=== PATIENT | male | born 2005 | race Caucasian/White ===

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

== ENCOUNTER 2024-08-10 04:30 | Emergency (ER) | payer OTHER, SELFPAY ==
--- OUTSIDE RECORDS SUMMARY | 2024-08-10 04:32 | XMS_ITS ---
Author Organization [facility] Address [address] [place] [address] Care Team Providers Care Clinical Fellow Name Role Phone Tommie Cronin Primary Care Provider REASON FOR VISIT Est Care not feeling well Encounters Encounter Location Date Provider Diagnosis [address] [place] [address] 04/10/2023 Tommie Cronin Plan Of Treatment No Information Progress Notes * Marleny PRYORDOB: [birth year] (19 yo M)Acc No.[id number]:04/10/2023 UNLOCKED PROGRESS NOTE Progress Notes Patient: Marleny ARAMBULA Provider: Mekhi Cronin :2005 A ge:18 Y S ex:Male Date:04/10/2023 Address:[address] [facility] [facility] Subjective: * Chief Complaints: * 1 . Est Care not feeling well. * Medical History: Objective: * Vitals: Assessment: Plan: * Treatment: * * Electronic signature of Taylor Cronin , [id number] on 08/10/2024 at 04:32 AM MANAGER CONTINUOUS IMPROVEMENT Sign off status: Pending * Provider: Mekhi Cronin Date: 1 Generated for Donell peoples/Aliya/Mariah on: 0 08/10/2024 04:32 AM MANAGER CONTINUOUS IMPROVEMENT
--- OUTSIDE RECORDS SUMMARY | 2024-08-10 04:33 | XMS_ITS | Clinical Summary ---
Author Organization [facility] Address [address] [place] [address] Care Team Providers Care Hotel Controller Name Role Phone Hector Hernandez MD Primary Care Provider [phone] Hector Hernandez MD Unavailable [phone] Source Comments [facility],non-owned Affiliates and Associated Physician Practices is amultiple site organization consisting of ambulatory clinics and hospital sitesin [place], [place], [place] and [place]. This disclosure is being madepursuant to the Care Everywhere program and may not contain all information available regarding this patient. Last updated 18.[facility] [employer] Allergies No known active allergies Medications * Be aware that medications may not be up to date on this document. Alwaysverify current medications with the patient. Medication Sig Dispensed Refills Start Date End Date Status citalopram (CELEXA) 10 MG tablet Take 10 mg by mouth once daily. 2 09/14/2014 Active polyethylene glycol 3350 (MIRALAX) packet Take by mouth once daily. 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 Questions solicited and answered. 2. Continue with existing conservative treatment program of arch supports 3. MRI of left foot/ankle for evaluation of possible tarsal coalition/bony fusion 4. Medications Prescribed: none 5. Activity Restrictions: none 6. Weightbearing status: No Restrictions Follow up: Schedule follow up when MRI is completed Flat foot (pes planus) (acquired), right foot Assessment & Plan (12/31/2019 2:14 PM CDT): PLAN: 1. Questions solicited and answered. 2. Continue with existing conservative treatment program of arch supports 3. Medications Prescribed: none 4. Activity Restrictions: none 5. Weightbearing status: No Restrictions Social History Tobacco Use Types Packs/Day Years Used Date Smoking Tobacco: Never Smokeless Tobacco: Never Sex and Gender Information Value Date Recorded Sex Assigned at Not on file Gender Identity Not on file Sexual Orientation Not on file Last Filed Vital Signs Vital Sign Reading Time Taken Comments Blood Pressure - - Pulse - - Temperature - - Respiratory Rate - - Oxygen Saturation - - Inhaled Oxygen Concentration - - Weight 69.9 kg (154 lb 1.6 oz) 02/04/2020 11:02 AM CDT Height 166.4 cm (5' 5.5 ) 02/04/2020 11:02 AM CD T Body Mass Index 25.25 02/04/2020 11:02 AM CDT Plan of Treatment Health Maintenance Due Date Last Done Comments HIV SCREENING 2019 HPV VACCINE (1 - Male 3-dose series) 2019 MENINGOCOCCAL (Group B) VACC INE (1 of 2 - Standard) 2020 HEPATITIS C SCREENING 03/15/2022 DTAP/TDAP/TD VACCINES (1 - Tdap) 2023 HEPATITIS B VACCINE (1 of 3 - 19+ 3-dose series) 2023 COVID-19 VACCINE (1 - 2023-2 5 season) 2024 INFLUENZA VACCINE (#1) 2024 DEPRESSION SCREENING 06/26/2024 ZOSTER VACCINE (1 of 2) 2054 HIB VACCINE Aged Out No longer eligi ble based on patient's age to complete this topic MENINGOCOCCAL VACCINE Aged Out No zohra benitez eligible based on patient's age to complete this topic PNEUMOCOCCAL VACCINE Aged Out No long er eligible based on patient's age to complete this topic Care Teams Hotel Controller Relationship Specialty Start Date End Date Hector Hernandez MD [address] [place] [address] PCP - General 01/02/20 Hector Hernandez MD [address] [place] [address] Pediatrics 01/02/20
--- OUTSIDE RECORDS SUMMARY | 2024-08-10 04:33 | XMS_ITS | Patient Health Record ---
Author Organization [facility] Address [address] [place] [address] Care Team Providers Care Boat Builder And Repairer Name Role Phone Tommie Cronin Primary Care Provider [phone] Reason For Referral No Information Plan Of Treatment No Information
--- OUTSIDE RECORDS SUMMARY | 2024-08-10 04:33 | XMS_ITS | Clinical Summary ---
Author Organization [facility] Address [address] [place] [address] Care Team Providers Care Manager Fraud Name Role Phone Unavailable Primary Care Provider Unavailabl e Social History Tobacco Use Types Packs/Day Years Used Date Smoking Tobacco: Never Assessed Sex and Gender Information Value Date Recorded Sex Assigned at Not on file Legal Sex Male 4:12 PM CDT Gender Identity Not on file Sexual Orientation Not on file Plan of Treatment Health Maintenance Due Date Last Done Comments Annual Physical 2007 HPV Vaccines (1 - Male 3-dos e series) 2019 Meningococcal B Vaccine (1 o f 2 - Standard) 2020 Hepatitis C 2022 DTaP, Tdap and Td Vaccines ( 1 - Tdap) 2023 Hepatitis B Vaccines (1 of 3 - 19+ 3-dose series) 2023 COVID-19 Vaccine (1 - 2023-2 5 season) 2024 Influenza Adult (#1) 2024 Meningococcal Vaccine Aged Out No zohra benitez eligible based on patient's age to complete this topic Pneumococcal Vaccine: Pediat rics (0 to 5 Years) and At-Risk Patients (6 to 64 Years) Aged Out No longer eligible b ased on patient's age to complete this topic RSV Immunizations Under 20 Months Aged Out No longer eligible based on patient's age to complete this topic
--- OUTSIDE RECORDS SUMMARY | 2024-08-10 04:33 | XMS_ITS | Continuity of Care Document ---
Author Organization [facility] Address [address] [place] [address] Phone Care Team Providers Care C Wpf Developer Name Role Phone Ayala OD, Grupo Unavailable Unavailable Procedures Procedure Date Eye Exam & Treatment Refraction Advance Directives Directive Yes / No Effective Date File Name No Information Encounters Encounter Description Practice Location Reason(s) For Visit Diagnoses Date Provider Providers Copied on Encounter [facility], [address], [place], [place], [id number], [place] tel:[phone] [facility] No Information October-0 5-201 0 Ayala OD Grupo. [address] , [address], [place], [address], [place]. tel:[phone] Family History Family Member Type Diagnosis Age At Onset No Information Payers Payer name Insurance type Covered democrat ID Authoriza tion(s) Medicaid [facility] [id number] Social History Type Description Quantity Date Captured Comments Sex Male Smoking Status No Information Chief Complaint And Reason For Visit No Information Reason For Referral Reason For Referral No Information History Of Present Illness Encounter Date Complaint History Of Prese nt Illness No Information Functional Status Date Functional Assessmen t No Information Instructions Date Instruction Additional Infor mation No Information Assessments Type Assessment Date No Information Patient Care Teams Name Effective Dates (start - stop) Status Members No Information
--- OUTSIDE RECORDS SUMMARY | 2024-08-10 04:33 | XMS_ITS | Referral Summary ---
Author Organization [facility] Address [address] [facility] [place] [address] Care Team Providers Care Mds Rn Name Role Phone Hector Hernandez MD Primary Care Provider [phone] Hector Hernandez MD Unavailable [phone] Source Comments [facility],non-owned Affiliates and Associated Physician Practices is amultiple site organization consisting of ambulatory clinics and hospital sitesin [place], [place], [place] and [place]. This disclosure is being madepursuant to the Care Everywhere program and may not contain all information available regarding this patient. Last updated 18.[facility] Allergies No known active allergies Medications * [...] 02/04/2020 11:02 AM CDT Plan of Treatment Not on file Care Teams Mds Rn Relationship Specialty Start Date End Date Hector Hernandez MD [address] [place] [address] PCP - General 01/02/20 Hector Hernandez MD [address] [place] [address] Pediatrics 01/02/20
--- OUTSIDE RECORDS SUMMARY | 2024-08-10 04:33 | XMS_ITS | Patient Health Summary ---
Author Organization [facility] Address [address] [facility] [place] [address] Care Team Providers Care Director It Name Role Phone Hector Hernandez MD Primary Care Provider [phone] Hector Hernandez MD Unavailable [phone] Note from [facility],non-owned Affiliates and Associated Physician Practices is amultiple site organization consisting of ambulatory clinics and hospital sitesin [place], [place], [place] and [place]. This disclosure is being madepursuant to the Care Everywhere program and may not contain all information available regarding this patient. Last updated 18.[facility] Allergies No known active allergies Medications * Be aware that medications may not be up to date on this document. Always verify current medications with the patient. * citalopram (CELEXA) 10 MG tablet(Started 09/14/2014) Take 10 mg by mouth once daily. 2 refills left * polyethylene glycol 3350 (MIRALAX) packet Take by mouth once daily. 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 Flat foot 02/04/2020 Flat foot (pes planus) (acquired), left foot 12/2019 Flat foot (pes planus) (acquired), right foot Social History Tobacco Use Types Packs/Day Years [...] Mass Index 25.25 02/04/2020 11:02 AM CDT Procedures * MRI FOOT LEFT WO CONTRAST(Performed 01/09/2020) Performed for Flat foot (pes planus) (acquired), left foot * XR FOOT LEFT 3VW OR MORE(Performed 12/31/2019) Performed for Pes planus of both feet * XR FOOT RIGHT WT BEARING 2VW(Performed 11/04/2014) Performed for Congenital pes planus, unspecified laterality * XR FOOT LEFT WT BEARING 2VW(Performed 11/04/2014) Performed for Congenital pes planus, unspecified laterality Results * MRI FOOT LEFT WO CONTRAST (01/09/2020 1:07 PM CDT) Anatomical Region Laterality Modality Ankle / Foot Magnetic Resonan ce 01/09/2020 1:11 PM CDT Impressions 01/09/2020 1:29 PM CDT Pes planovalgus deformity. No evidence of tarsal coalition or other osseous abnormality. Dictated by Ivonne Oconnor on 01/09/2020 1:27 PM IIrene, have personally reviewed the images and I agree with this report. *Reading Radiologist: Irene Upton on 01/09/2020 at 1:29 PM Narrative 01/09/2020 1:29 PM CDT INDICATION: 14 years old with acquired pes planovalgus deformity. Evaluation of possible tarsal coalition/bony fusion. COMPARISON: Left foot radiograph dated December 31, 2019. TECHNIQUE: Sagittal T1 / T2 FS, axial T1 / T2 FS, coronal T1 / T2 FS MR images of the left foot. FINDINGS: Redemonstrated pes planovalgus deformity. Bones / cartilage: The bone marrow signal is normal. The articular cartilage has normal signal and thickness. Medial: The deltoid ligament and the tibial spring are intact. Lateral: The syndesmotic ligaments, talofibular ligaments and calcaneofibular ligament are intact. Posterior: The Achilles tendon and plantar fascia are normal. Muscles/tendons: Normal in bulk and signal. No tenosynovitis is seen. Other: No joint effusion or extra-articular fluid collection is present. Procedure Note Irene Upton, DO - 01/09/2020 INDICATION: 14 years old with acquired pes planovalgus deformity. Evaluation of possible tarsal coalition/bony fusion. COMPARISON: Left foot radiograph dated December 31, 2019. TECHNIQUE: Sagittal T1 / T2 FS, axial T1 / T2 FS, coronal T1 / T2 FS MR images of the left foot. FINDINGS: Redemonstrated pes planovalgus deformity. Bones / cartilage: The bone marrow signal is normal. The articular cartilage has normal signal and thickness. Medial: The deltoid ligament and the tibial spring are intact. Lateral: The syndesmotic ligaments, talofibular ligaments and calcaneofibular ligament are intact. Posterior: The Achilles tendon and plantar fascia are normal. Muscles/tendons: Normal in bulk and signal. No tenosynovitis is seen. Other: No joint effusion or extra-articular fluid collection is present. IMPRESSION Pes planovalgus deformity. No evidence of tarsal coalition or other osseous abnormality. Dictated by Ivonne Oconnor on 01/09/2020 1:27 PM I, Irene Upton, have personally reviewed the images and I agree with this report. *Reading Radiologist: Irene Upton on 01/09/2020 at 1:29 PM Ayah Harper MD MR ORDERABLES * XR FOOT LEFT 3VW OR MORE (12/31/2019 1:39 PM CDT) Anatomical Region Laterality Modality Ankle / Foot Radiographic Inez ging 12/31/2019 1:29 PM CDT Impressions 12/31/2019 2:17 PM CDT Planovalgus foot. Reading Radiologist: Miguel Weaver on 12/31/2019 at 2:17 PM Narrative 12/31/2019 2:17 PM CDT INDICATION: Flat foot. COMPARISON: 11/04/2014 TECHNIQUE: Frontal, oblique and lateral views of the left foot. FINDINGS: There is no fracture or osseous abnormality. Planovalgus deformity is present. The soft tissues are normal. Procedure Note Miguel Weaver MD - 12/31/2019 INDICATION: Flat foot. COMPARISON: 11/04/2014 TECHNIQUE: Frontal, oblique and lateral views of the left foot. FINDINGS: There is no fracture or osseous abnormality. Planovalgus deformity is present. The soft tissues are normal. IMPRESSION Planovalgus foot. Reading Radiologist: Miguel Weaver on 12/31/2019 at 2:17 PM Ayah Harper MD DIAGNOSTIC IMAGING O RDERABLES * XR FOOT WEIGHT BEARING LEFT (11/04/2014 10:57 AM CDT) Anatomical Region Laterality Modality Ankle / Foot, Lower Extremity Ra diographic Imaging 11/04/2014 11:2 9 AM CDT Impressions 11/04/2014 11:32 AM CDT Bilateral pes planus. Narrative 11/04/2014 11:32 AM CDT EXAMINATION: 1. Left foot weightbearing 2. 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 COMPARISON: None available. FINDINGS: 1. Right foot: 3 view weightbearing examination of the right foot is submitted for interpretation. There is no fracture. Pes planus is present. The alignment is otherwise normal. The joint spaces are normal. There is no ankle joint effusion. 2. Left foot: 3 view weightbearing examination of the left foot is submitted for interpretation. There is no fracture. Pes planus is present. The alignment is otherwise normal. The joint spaces are normal. There is no ankle joint effusion. Procedure Note Nikia Parra MD - 11/04/2014 EXAMINATION: 1. Left foot weightbearing 2. 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 COMPARISON: None available. FINDINGS: 1. Right foot: 3 view weightbearing examination of the right foot is submitted for interpretation. There is no fracture. Pes planus is present. The alignment is otherwise normal. The joint spaces are normal. There is no ankle joint effusion. 2. Left foot: 3 view weightbearing examination of the left foot is submitted for interpretation. There is no fracture. Pes planus is present. The alignment is otherwise normal. The joint spaces are normal. There is no ankle joint effusion. IMPRESSION Bilateral pes planus. Kamar ThakkarMyEveTab DIAGNOSTIC IMAGING ORDERABLES * XR FOOT WEIGHT BEARING RIGHT (11/04/2014 10:57 AM CDT) Anatomical Region Laterality Modality Ankle / Foot, Lower Extremity Ra diographic Imaging 11/04/2014 11:2 9 AM CDT Impressions 11/04/2014 11:32 AM CDT Bilateral pes planus. Narrative 11/04/2014 11:32 AM CDT EXAMINATION: 1. Left foot weightbearing 2. 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 COMPARISON: None available. FINDINGS: 1. Right foot: 3 view weightbearing examination of the right foot is submitted for interpretation. There is no fracture. Pes planus is present. The alignment is otherwise normal. The joint spaces are normal. There is no ankle joint effusion. 2. Left foot: 3 view weightbearing examination of the left foot is submitted for interpretation. There is no fracture. Pes planus is present. The alignment is otherwise normal. The joint spaces are normal. There is no ankle joint effusion. Procedure Note Nikia Parra MD - 11/04/2014 EXAMINATION: 1. Left foot weightbearing 2. 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 COMPARISON: None available. FINDINGS: 1. Right foot: 3 view weightbearing examination of the right foot is submitted for interpretation. There is no fracture. Pes planus is present. The alignment is otherwise normal. The joint spaces are normal. There is no ankle joint effusion. 2. Left foot: 3 view weightbearing examination of the left foot is submitted for interpretation. There is no fracture. Pes planus is present. The alignment is otherwise normal. The joint spaces are normal. There is no ankle joint effusion. IMPRESSION Bilateral pes planus. Kamar Mcbride PA-C DIAGNOSTIC IMAGING ORDERABLES Care Teams Director It Relationship Specialty Start Date End Date Hector Hernandez MD [address] [facility] [address] [place] [address] PCP - General 01/02/20 Hector Hernandez MD [address] [facility] [address] [place] [address] Pediatrics 01/02/20
--- NOTE | 2024-08-10 04:40 | ECG_ITS ---
Test Date: 2024-08-10 04:45:37 Measurements Intervals [place] Rate: 71 P: -11 [place]: 131 QRS: 55 QRSD: 101 T: 47 QT: 367 QTc: 400 Interpretive Statements SINUS RHYTHM NORMAL ECG No previous ECG available for comparison Electronically Signed On 08-10-2024 07:58:46 QUAIL FARMER by Jerson Jules D.O.
[2024-08-10 04:47] VITALS: PULSE 82
[2024-08-10 04:48] VITALS: BP 103/73; PULSE 85; RESP 19; TEMP 36.4; O2SAT 100
[2024-08-10 04:49] VITALS: O2SAT 100
[2024-08-10 04:54] LABS: Glucose Point of Care 115 mg/dl (65-105)
--- OUTSIDE RECORDS SUMMARY | 2024-08-10 04:57 | XMS_ITS | Clinical Summary ---
Author Organization [facility] Address [address] [facility] [place] [address] Care Team Providers Care Licensed Physical Therapy Assistant Name Role Phone Hector Hernandez MD Primary Care Provider [phone] Hector Hernandez MD Unavailable [phone] Source Comments [facility],non-owned Affiliates and Associated Physician Practices is amultiple site organization consisting of ambulatory clinics and hospital sitesin [place], [place], [place] and [place]. This disclosure is being madepursuant to the Care Everywhere program and may not contain all information available regarding this patient. Last updated 18.[facility] [employer] Allergies No known active allergies Medications * [...] age to complete this topic Care Teams Licensed Physical Therapy Assistant Relationship Specialty Start Date End Date Hector Hernandez MD [address] [place] [address] PCP - General 01/02/20 Hector Hernandez MD [address] [place] [address] Pediatrics 01/02/20
--- OUTSIDE RECORDS SUMMARY | 2024-08-10 04:57 | XMS_ITS | Clinical Summary ---
Author Organization [facility] Address [address] [place] [address] Care Team Providers Care Parking Cashier Name Role Phone Unavailable Primary Care Provider [...]
--- OUTSIDE RECORDS SUMMARY | 2024-08-10 04:57 | XMS_ITS | Continuity of Care Document ---
Author Organization [facility] Address [address] [place] [address] Phone Care Team Providers Care Wine Consultant Name Role Phone Ayala OD, Grupo Unavailable Unavailable Procedures Procedure Date Eye Exam & Treatment Refraction Advance Directives Directive Yes / No Effective Date File Name No Information Encounters Encounter Description Practice Location Reason(s) For Visit Diagnoses Date Provider Providers Copied on Encounter [facility], [address] [place], [place], [id number], [place] tel:[phone] Formerly named [facility] No Information October-0 5-201 0 Ayala OD Grupo. [address] , [address], [place], [address], [place]. tel:[phone] Family History Family Member Type Diagnosis Age At Onset No Information Payers Payer name Insurance type Covered alliance party ID Authoriza tion(s) Medicaid [facility] [id number] Social History Type Description Quantity Date Captured [...]
--- OUTSIDE RECORDS SUMMARY | 2024-08-10 04:57 | XMS_ITS | Patient Health Summary ---
Author Organization [facility] Address [address] [address] Care Team Providers Care Data Consultant Name Role Phone Hector Hernandez MD Primary Care Provider [phone] Hector Hernandez MD Unavailable [phone] [facility],non-owned Affiliates and Associated Physician Practices is amultiple site organization consisting of ambulatory clinics and hospital sitesin [place], [place], [place] and [place]. This disclosure is being madepursuant to the Care Everywhere program and may not contain all information available regarding this patient. Last updated 18.[facility] Allergies No known active allergies Medications * [...] joint effusion. IMPRESSION Bilateral pes planus. Kamar ThakkarEnvia Lá DIAGNOSTIC IMAGING ORDERABLES * XR FOOT WEIGHT [...] Mcbride PA-C DIAGNOSTIC IMAGING ORDERABLES Care Teams Data Consultant Relationship Specialty Start Date End Date Hector Hernandez MD [address] [place] [address] PCP - General 01/02/20 Hector Hernandez MD [address] [place] [address] Pediatrics 01/02/20
--- OUTSIDE RECORDS SUMMARY | 2024-08-10 04:57 | XMS_ITS | Referral Summary ---
Author Organization [facility] Address [address] [address] Care Team Providers Care Laborer Driver Name Role Phone Hector Hernandez MD Primary Care Provider Hector Hernandez MD Unavailable [phone] Source Comments [facility],non-owned Affiliates and Associated Physician Practices is amultiple site organization consisting of ambulatory clinics and hospital sitesin [place], [place], [place] and [place]. This disclosure is being madepursuant to the Care Everywhere program and may not contain all information available regarding this patient. Last updated 18.[facility] Allergies No known active allergies Medications * [...] of Treatment Not on file Care Teams Laborer Driver Relationship Specialty Start Date End Date Hector Hernandez MD [address] [place] [address] PCP - General 01/02/20 Hector Hernandez MD [address] [place] [address] Pediatrics 01/02/20
[2024-08-10 05:00] LABS: Basophils Percent Auto 0.5 % (0.2-1.2); Eosinophils Absolute Auto 0.1 K/mm3 (0-0.3); Eosinophils Percent Auto 1.1 % (0-4.4); Hematocrit 43.3 % (42.0-52.0); Hemoglobin 14.8 g/dL (14.0-18.0); Immature Granulocyte Absolute 0.02 K/mm3 (0.00-0.031); Immature Granulocyte Percent A 0.2 % (0-0.5); Lymphocytes Absolute Auto 1.64 K/mm3 (0.9-3.2); Lymphocytes Percent Auto 18.7 % (18.3-44.2); Mean Corpuscular HGB Conc 34.2 g/dl (32-36); Mean Corpuscular Hemoglobin 28.5 pg (26-34); Mean Corpuscular Volume 83.4 fl (80-100); Mean Platelet Volume 8.6 fl (7.4-10.4); Monocytes Absolute Auto 0.7 K/mm3 (0.1-0.6); Monocytes Percent Auto 7.6 % (2.6-8.5); Neutrophils Absolute Auto 6.3 K/mm3 (1.3-6.7); Neutrophils Percent Auto 71.9 % (45.5-73.1); Platelet Count Result 328 k/mm3 (150-375); Red Blood Count 5.19 M/mm3 (4.6-6.20); Red Cell Distribution Width 12.5 % (11.5-14.5); White Blood Count 8.8 K/mm3 (4.5-10.0)
[2024-08-10] MEDS: levETIRAcetam 1000MG/NACL100ML 1,000 MG/100 ML BAG 400 MG IVPB (05:00)
--- NOTE | 2024-08-10 05:10 | ED.SEIZURE ---
HPI - Seizure General Chief Complaint: Seizure Stated Complaint: seizure Time Seen by Provider: 08/10/24 04:41 History of Present Illness HPI Narrative: Patient with recently diagnosed seizure 1 mo ago started on keppra 500mg daily presents after witnessed seizure by mom MOBILE PET GROOMER; lasted 1 min, GTC, pt post-ictal afterwards. He doesn't drink or do drugs but does admit to drinking lots of caffeine and staying up late/not sleeping much. Strong family history of seizures. Related Data Home Medications ?Medication ?Instructions ?Recorded ?Confirmed ?Last Taken ?Type levetiracetam 100 mg/mL oral mg 08/10/24 Unknown History solution Allergies Allergy/AdvReac Type Severity Reaction Status Date / Time No Known Allergies Allergy Verified 08/10/24 05:01 Review of Systems Review of Systems: All systems reviewed & are unremarkable except as noted in HPI and below Exam Narrative: EXAMINATION OF ORGAN SYSTEMS/BODY AREAS: Constitutional: Vital signs per nursing GENERAL:[No acute distress, non-toxic appearing.] HEAD: Normal with no signs of head trauma. EYES: EOMI, conjunctiva normal, PERRL ENT: Hearing grossly intact LUNGS: Nonlabored breathing. HEART: [Regular rate and rhythm] ABD: [Soft], [nontender to palpation] EXT: Normal range of motion SKIN: [No rashes or lesions.] NEURO: [Alert and oriented x 3. No gross focal sensory or strength deficits.] PSYCH: Normal affect Course Vital Signs Vital signs: Vital Signs Pulse Rate 82 08/10/24 04:47 Temperature 97.6 F 08/10/24 04:48 Pulse Rate 85 08/10/24 04:48 Respiratory Rate 19 08/10/24 04:48 Blood Pressure 103/73 08/10/24 04:48 Pulse Oximetry 100 08/10/24 04:49 Oxygen Delivery Room Air 08/10/24 04:49 MDM - Seizure MDM Narrative Medical decision making narrative: Patient with recently diagnosed seizure 1 mo ago started on keppra 500mg daily presents after witnessed seizure by mom MOBILE PET GROOMER; lasted 1 min, GTC, pt post-ictal afterwards. He doesn't drink or do drugs but does admit to drinking lots of caffeine and staying up late/not sleeping much. Strong family history of seizures. He is well-appearing here, no focal neurologic deficits. I did load him with Keppra, he is only taking diverted daily so I will increase dose to 500 twice a day, he is instructed on better sleep hygiene and avoiding triggers for seizure. He is asked to follow up with his neurologist and return for any further issues. Lab Data 08/10/24 04:55 08/10/24 04:55 Labs: Lab Results 08/10/24 08/10/24 Range/Units 04:51 04:55 WBC 8.8 (4.5-10.0) K/mm3 RBC 5.19 (4.6-6.20) M/mm3 Hgb 14.8 (14.0-18.0) g/dL Hct 43.3 (42.0-52.0) % MCV 83.4 (80-100) fl MCH 28.5 (26-34) pg MCHC 34.2 (32-36) g/dl RDW 12.5 (11.5-14.5) % Plt Count 328 (150-375) k/mm3 MPV 8.6 (7.4-10.4) fl Immature Gran % (Auto) 0.2 (0-0.5) % Neut % (Auto) 71.9 (45.5-73.1) % Lymph % (Auto) 18.7 (18.3-44.2) % [place] % (Auto) 7.6 (2.6-8.5) % Eos % (Auto) 1.1 (0-4.4) % Baso % (Auto) 0.5 (0.2-1.2) % Lymph # (Auto) 1.64 (0.9-3.2) K/mm3 [place] # (Auto) 0.7 H (0.1-0.6) K/mm3 Eos # (Auto) 0.1 (0-0.3) K/mm3 Baso # (Auto) 0.0 (0.0-0.1) K/mm3 Abs Immat Gran (auto) 0.02 (0.00-0.031) K/mm3 Absolute Neuts (auto) 6.3 (1.3-6.7) K/mm3 Absolute Nucleated RBC 0.000 (0.0-0.012) K/mm3 Nucleated RBC % 0.0 (0.0-0.2) % Sodium 139 (137-145) mmol/L Potassium 4.1 (3.4-5.0) mmol/L Chloride 101 (98-107) mmol/L Carbon Dioxide 28 (22-30) mmol/L Anion Gap 10 (4-12) mmol/L BUN 17 (9-20) mg/dL Creatinine 0.64 L (0.7-1.3) mg/dL Estim Creat Clear Calc 116 ml/min Estimated GFR > 60 (59 - ) Glucose 108 (65-110) mg/dL POC Capillary Glucose 115 H (65-105) mg/dl Lactic Acid 0.8 (0.7-2.0) mmol/L Calcium 9.4 (8.4-10.2) mg/dL Total Bilirubin 0.8 (0.2-1.3) mg/dL AST 24 (17-59) U/L ALT 14 (6-50) U/L Alkaline Phosphatase 73 (38-126) U/L Total Protein 8.0 (6.3-8.2) g/dL Albumin 4.7 (3.5-5.1) g/dL Discharge Plan Discharge Clinical Impression: Epileptic seizure Patient Disposition: Home, Self-Care Condition: Stable Instructions: Epilepsy (ED) Additional Instructions: Please follow up with your doctor/neurologist and start taking the keppra as prescribed; you can always return for any further issues. Make sure that you are getting enough sleep, regular meals, do not do drugs or drink alcohol. Patient Language: Croatian Prescriptions: New levetiracetam [Keppra] 100 mg/mL solution 500 mg PO Q12H 30 Days Qty: 300 0RF No Action levetiracetam 100 mg/mL solution Follow-up/Referrals: PHYSICIAN,ENGINEERING TECHNICIAN PARKING [Primary Care Provider] - Stand Alone Forms: Work/School Release IP
[2024-08-10 05:13] LABS: Alanine Aminotransferase 14 U/L (6-50); Albumin Level 4.7 g/dL (3.5-5.1); Alkaline Phosphatase 73 U/L (38-126); Anion Gap 10 mmol/L (4-12); Aspartate Amino Transferase 24 U/L (17-59); Bilirubin,Total 0.8 mg/dL (0.2-1.3); Blood Urea Nitrogen 17 mg/dL (9-20); Calcium 9.4 mg/dL (8.4-10.2); Carbon Dioxide 28 mmol/L (22-30); Chloride 101 mmol/L (98-107); Estimated CRCL calculation 116 ml/min; Estimated Glomerular Filt Rate > 60; Glucose 108 mg/dL (65-110); Lactic Acid Reflex 0.8 mmol/L (0.7-2.0); Potassium 4.1 mmol/L (3.4-5.0); Sodium 139 mmol/L (137-145)
== END 2024-08-10 06:09 | disposition home or self-care (01) ==
PROVIDERS: Emergency Provider Emergency Medicine
DX: G40.909 Epilepsy, unspecified, not intractable, without status epilepticus (principal)
CPT/HCPCS: 36415; 80053; 82948; 83605; 85025; 93005; 96374; 99284; J1953